=== PATIENT | female | born 1980 | race Caucasian/White ===

== ENCOUNTER 2017-03-21 13:52 | Inpatient (IN) | payer BC ==
--- NOTE | ~2017-03-21 | DS ---
Discharge Summary [address] [facility] [place]. [address] NAME: JESSICA CAMARA : 76 STATUS : DIS Brian PAT#: [id number] AGE: 36 ADM/REG DATE : 03/21/17 MR#: [id number] REPORT SERV DATE: 03/24/17 DICTATED BY: VEE FERNANDEZ DATE: 03/23/17 REPORT STATUS : Draft TRANSCRIBED BY: MODL DATE: 03/23/17 ADMISSION DATE: 03/21/2017 DISCHARGE DATE: 03/23/2017 DISCHARGE DIAGNOSES: 1. Idiopathic thrombocytopenic purpura. 2. Status post liver transplant in 2006 and 2015. 3. Chronic leukocytosis. WBC count is 17.6. 4. Elevated blood pressure. LABORATORY DATA: WBC 17.6, hemoglobin 12.3, hematocrit 38.6, and platelet count 57. Sodium 135, potassium is 3.8, chloride is 102, CO2 is 26, BUN is 27, creatinine is 0.59, glucose is 106, and calcium is 9.2. COURSE IN THE HOSPITAL STAY: Please refer to history and physical dictated on 03/21/2017 for complete admission details. This patient is a 36-year-old female who presented as a direct admission from Dr. Dave Henderson's office. She does present with a history of ITP, status post liver transplant in 2006 and 2015. The patient's platelet count upon admission was less than 5. The patient was admitted for infusion of IVIG as well as plateletpheresis. 1. ITP. The patient's platelet count as noted is less than 5 upon admission. The patient was transfused 1 unit of plateletpheresis as well as IVIG x3 days along with Decadron pulse dosing. The patient has tolerated it well. Upon discharge, the patient's platelet count is 57. She will follow up with Dr. Dave Henderson on 03/24/2017. 2. Status post liver transplant in 2006 and 2015. The patient is followed by [facility]. The patient does state that she has followup scheduled already. 3. Chronic leukocytosis. The patient does present with a history of elevated white count. Upon discharge, WBC count is 17.6. This is monitored again by [facility] as well as Dr. Dave Henderson. 4. Elevated blood pressure. The patient presented with elevated blood pressure. During her hospital stay, she did receive hydralazine p.r.n. as needed for elevated blood pressure. Upon discharge, at this time, the patient's blood pressure is 102/64. During her hospital stay, her blood pressure did rise to 175/110. Again, the patient was given hydralazine as needed. A prescription for clonidine has been provided for the patient. She does state that she has had history of elevated blood pressure. At one time, was on Norvasc, but has discontinued that. The patient again will monitor blood pressure and keep a log to review with [facility]. A prescription for clonidine 0.1 mg was provided, directions also reviewed with the patient. Questions were answered. DISCHARGE MEDICATIONS: 1. Dapsone 100 mg one p.o. daily. 2. Decadron 20 mg p.o. every 12 hours. 3. Prograf 1 mg, 4 mg p.o. daily. 4. Myfortic 180 mg p.o. twice daily. 5. Tylenol 325 mg, 650 mg p.o. every six hours p.r.n. Discharge Summary [address] [address] NAME: JESSICA CAMARA : 76 STATUS : DIS Brian PAT#: [id number] AGE: 36 ADM/REG DATE : 03/21/17 MR#: [id number] REPORT SERV DATE: 03/24/17 DICTATED BY: VEE FERNANDEZ DATE: 03/23/17 REPORT STATUS : Draft TRANSCRIBED BY: MEHREEN DATE: 03/23/17 6. Claritin-D one tab every 12 hours p.r.n. 7. Omeprazole 40 mg one p.o. every day x10 days. 8. Clonidine 0.1 mg one p.o. b.i.d. x3 days, then p.o. every day. The patient to monitor blood pressure. This patient is being discharged home in hemodynamically stable condition. She will follow up with Dr. Dave Henderson's office on 03/24/2017. Discharge questions were answered. This discharge took greater than 30 minutes. DICTATED BY: KHURRAM De León/MEHREEN Vee Fernandez NP / [id number] CC: Jocelin Moran MD
--- NOTE | ~2017-03-21 | HP ---
History And Physical [address] [place]. [address] NAME: JESSICA CAMARA : 76 STATUS : ADM Brian PAT#: [id number] AGE: 36 ADM/REG DATE : 03/21/17 MR#: [id number] REPORT SERV DATE: 03/22/17 DICTATED BY: VEE FERNANDEZ DATE: 03/21/17 REPORT STATUS : Draft TRANSCRIBED BY: MODL DATE: 03/21/17 DATE OF ADMISSION: 03/21/2017 REASON FOR ADMISSION: Infusion of IVIG. HISTORY OF PRESENT ILLNESS: This patient is a 36-year-old female, who presented as a direct admission from Dr. Dave Henderson's office. She does present with a history of ITP. She was seen in Dr. Henderson's office today with a platelet count of less than 5. The patient does present with a history of liver transplant at [facility] in 2006 and 2015. The patient states that she was diagnosed with ITP in 1982. She does state that she has petechiae on her lower extremities. The patient denies active bleeding. The patient does deny any shortness of breath. She denies any chest pain. She denies any dizziness or headache. REVIEW OF SYSTEMS: Otherwise negative review of systems, except as listed above. PAST MEDICAL HISTORY: 1. ITP, under the care of Dr. Dave Henderson. 2. Iron-deficiency anemia. 3. Chronic leukocytosis. 4. C difficile. 5. Ulcerative colitis. 6. Umbilical cellulitis with abscess in 2010. 7. Sclerosing cholangitis. 8. [place] spotted fever. PAST SURGICAL HISTORY: 1. Liver transplant in 2006 and 2015 at [facility]. 2. Splenectomy, 1983. 3. Biliary drain. 4. Appendectomy. 5. Cholecystectomy. 6. Right ovarian surgery. SOCIAL HISTORY: The patient is . She is a [id number] mom. One child. Denies smoking. Denies alcohol. Denies illicit drug use. HOME MEDICATIONS: 1. Tylenol 325 mg, 650 mg p.o. every 6 hours p.r.n. 2. Dapsone 100 mg one p.o. daily. 3. Claritin-D one tablet p.o. every 12 hours p.r.n. 4. Myfortic 180 mg tablet p.o. twice daily. 5. Prednisone 20 mg one p.o. daily. 6. Prograf 1 mg capsule, mg p.o. twice daily. PHYSICAL EXAMINATION: History And Physical [address] [place]. [address] NAME: JESSICA CAMARA : 76 STATUS : ADM Brian PAT#: [id number] AGE: 36 ADM/REG DATE : 03/21/17 MR#: [id number] REPORT SERV DATE: 03/22/17 DICTATED BY: VEE FERNANDEZ DATE: 03/21/17 REPORT STATUS : Draft TRANSCRIBED BY: MEHREEN DATE: 03/21/17 VITAL SIGNS: O2 saturations 98% on room air, temperature is 98.5, pulse is 102, respirations 18, blood pressure is 152/90. GENERAL: This patient is in no acute distress. HEENT: Head is normocephalic, atraumatic. Pupils are equal, round, and reactive. Mucous membranes are moist and pink. Sclerae are nonicteric. NECK: No JVD. No lymphadenopathy. LUNGS: Clear bilateral. No wheezes, rales, or rhonchi. HEART: The patient is tachycardic. No murmurs, rubs, or gallops. ABDOMEN: Soft, nontender to touch. EXTREMITIES: No cyanosis. No clubbing. No edema. Petechiae noted in bilateral lower extremities. NEUROLOGICAL: The patient is alert and oriented x3. LABORATORY DATA: WBC 17.9, hemoglobin 13.0, hematocrit 40.5, platelet count less than 5. PLAN OF CARE: 1. ITP. The patient does have history of ITP, will be followed by Dr. Dave Henderson during her stay. Platelet count this time is less than 5. The patient will receive IVIG x3 days. Daily CBC. 2. Status post liver transplant in 2006 and 2015. We will continue the patient's home medications. 3. Chronic leukocytosis. WBC count noted is 17.9. We will continue to monitor. 4. The patient is a full code. The patient will be followed by Dr. Riggins and Dr. Dave Henderson during her hospital stay. [facility]/MEHREEN Vee Fernandez NP / [id number] CC: Jocelin Moran MD
[~2017-03-21 13:52] MED LIST: ACET500CAP PO; ACT300 PO; ALINIA500 PO; CELLCEPT PO; CELLCEPT2 PO; CELLCEPT5 PO; CLARITD PO; ESTRATESHS PO; ESTRATEST PO; FLAG500TAB PO; IMU PO; LEVAQUIN5T PO; LEVAQUIN750 MG PO; MAGNESIUM POWDER PO; NEXIUM40 PO; NORCO1 TA1 PO; P10 PO; P20 PO; P5 PO; PREDNISONE PO; PRILO PO; PROBIOTIC PO; PROGRAF1 PO; PROGRAF5 PO; [UNRECOGNIZED DRUG - OTHER]; [UNRECOGNIZED DRUG - OTHER] PO; [UNRECOGNIZED DRUG - OTHER] PO
[2017-03-21] MEDS ORDERED: P20 PO (14:31)
[2017-03-21] MEDS ORDERED: MYFORTIC180 MG PO (14:31)
[2017-03-21] MEDS ORDERED: DAPSONE 100 MG100 MG PO (14:31)
[2017-03-21] MEDS ORDERED: T PO (14:32)
[2017-03-21] MEDS ORDERED: CLARITD PO (14:33)
[2017-03-22 05:03] LABS: BASOPHILS 0.8 %; BASOPHILS ABSOLUTE 0.08 10/3/uL (0.0-0.16); EOSINOPHILS 7.8 %; EOSINOPHILS ABSOLUTE 0.81 10/3/uL (0.0-0.53); HEMOGLOBIN 10.7 g/dL (12.0-16.0); IMMATURE GRANULOCYTES 0.4 %; IMMATURE GRANULOCYTES ABSOLUTE 0.04 10/3/uL (0.0-0.11); LYMPHOCYTES 29.6 %; LYMPHOCYTES ABSOLUTE 3.08 10/3/uL (0.67-4.30); MANUAL DIFF NO %; MEAN CORPUS HGB CONC 32.4 g/dL (32.0-36.0); MEAN CORPUSCULAR HEMOGLOB 26.9 pg (26.0-34.0); MEAN CORPUSCULAR VOLUME 82.9 fL (80-100); MONOCYTES 10.8 %; MONOCYTES ABSOLUTE 1.12 10/3/uL (0.21-1.20); NEUTROPHILS 50.6 %; NEUTROPHILS ABSOLUTE 5.26 10/3/uL (2.02-8.40); PLATELET COUNT 4 10/3/uL (150-400); RBC DISTRIBUTION WIDTH 17.6 % (12.0-16.0); RED CELL COUNT 3.98 10/6/uL (4.0-5.6); WHITE BLOOD CELLS 10.4 10/3/uL (4.5-10.5)
[2017-03-22 05:20] LABS: ANISOCYTOSIS 1+ (5-10/OIF) (0-5/OIF); BAND NEUTROPHILS 3 %; EOSINOPHILS 9 %; EOSINOPHILS ABSOLUTE (CALC) 0.94 10/3/uL (0.0-0.53); HOWELL JOLLY BODIES 1+ (1-2/OIF); LYMPHOCYTES 29 %; LYMPHOCYTES ABSOLUTE (CALC) 3.02 10/3/uL (0.67-4.30); MONOCYTES 3 %; MONOCYTES ABSOLUTE (CALC) 0.31 10/3/uL (0.21-1.20); NEUTROPHILS ABSOLUTE (CALC) 6.14 10/3/uL (2.02-8.40); SEGMENTED NEUTROPHIL (0) 56 %; TOTAL NUCLEATED CELLS 100
[2017-03-23 07:51] LABS: BASOPHILS 0.1 %; BASOPHILS ABSOLUTE 0.01 10/3/uL (0.0-0.16); EOSINOPHILS 0 %; HEMATOCRIT 38.6 % (36.0-48.0); HEMOGLOBIN 12.3 g/dL (12.0-16.0); IMMATURE GRANULOCYTES 0.5 %; IMMATURE GRANULOCYTES ABSOLUTE 0.08 10/3/uL (0.0-0.11); LYMPHOCYTES 12.1 %; LYMPHOCYTES ABSOLUTE 2.13 10/3/uL (0.67-4.30); MANUAL DIFF NO %; MEAN CORPUS HGB CONC 31.9 g/dL (32.0-36.0); MEAN CORPUSCULAR HEMOGLOB 26.3 pg (26.0-34.0); MEAN CORPUSCULAR VOLUME 82.5 fL (80-100); MONOCYTES 7.6 %; MONOCYTES ABSOLUTE 1.34 10/3/uL (0.21-1.20); NEUTROPHILS 79.7 %; NEUTROPHILS ABSOLUTE 14.04 10/3/uL (2.02-8.40); PLATELET COUNT 57 10/3/uL (150-400); RBC DISTRIBUTION WIDTH 17.3 % (12.0-16.0); RED CELL COUNT 4.68 10/6/uL (4.0-5.6); WHITE BLOOD CELLS 17.6 10/3/uL (4.5-10.5)
[2017-03-23 07:58] LABS: BUN (BLOOD UREA NITROGEN) 27 MG/DL (6-23); CALCIUM, SERUM 9.2 MG/DL (8.5-10.4); CHLORIDE, SERUM 102 MMOL/L (96-112); CO2 (CARBON DIOXIDE) 26 MMOL/L (24-34); CREATININE 0.59 MG/DL (0.55-1.02); GFR AFRICAN AMERICAN 135 ML/MIN (>=60); GFR NON AFRICAN AMERICAN 116 ML/MIN (>=60); GLUCOSE, SERUM 106 MG/DL (60-99); POTASSIUM, SERUM 3.8 MMOL/L (3.5-5.3); SODIUM, SERUM 135 MMOL/L (135-148)
[2017-03-23 08:19] LABS: ANISOCYTOSIS 1+ (5-10/OIF) (0-5/OIF); HYPOCHROMIA 1+ (3-10/OIF) (0-2/OIF); PLATELET ESTIMATE DEC (ADEQUATE)
[2017-03-23 08:20] LABS: TARGET CELLS OCC (1-2/OIF) (0-1/OIF)
[2017-03-23] MEDS ORDERED: PRILOSEC40 MG PO (10:59)
[2017-03-23] MEDS ORDERED: DEX4 PO (11:00)
[2017-03-23] MEDS ORDERED: CAT1 PO (11:00)
== END 2017-03-23 11:50 | disposition home or self-care (01) | DRG 813 ==
LOC: 4EA 13:52
PROVIDERS: Internal Medicine Hematology & Oncology
PROC: 6A550Z2 Pheresis of Platelets, Single (ICD-10-PCS; principal; 2017-03-21)
PROC: 30233S1 Transfusion of Nonautologous Globulin into Peripheral Vein, Percutaneous Approach (ICD-10-PCS; principal; 2017-03-21)
DX: D69.3 Immune thrombocytopenic purpura (principal); Z94.4 Liver transplant status; I10 Essential (primary) hypertension; D50.9 Iron deficiency anemia, unspecified; Z90.81 Acquired absence of spleen; Z79.899 Other long term (current) drug therapy; Z79.52 Long term (current) use of systemic steroids; D72.828 Other elevated white blood cell count; G43.909 Migraine, unspecified, not intractable, without status migrainosus; Z88.5 Allergy status to narcotic agent; Z88.2 Allergy status to sulfonamides; Z88.8 Allergy status to other drugs, medicaments and biological substances; Z91.041 Radiographic dye allergy status
CPT/HCPCS: 36415; 36430; 80048; 85025; 86850; 86900; 86901; 96374; 96375; 96376; A9270-GY; G0378; J0360; J1200; J1568; J2405; J2550; J7507; P9035

== ENCOUNTER 2017-04-05 12:13 | Inpatient (IN) | payer BC ==
--- NOTE | ~2017-04-05 | HP ---
History And Physical [address] [place]. [address] NAME: JESSICA CAMARA : 76 STATUS : ADM IN [facility]#: [id number] AGE: 37 ADM/REG DATE : 04/05/17 MR#: [id number] REPORT SERV DATE: 04/05/17 DICTATED BY: VEE FERNANDEZ DATE: 04/05/17 REPORT STATUS : Draft TRANSCRIBED BY: MODL DATE: 04/05/17 DATE OF ADMISSION: 04/05/2017 REASON FOR ADMISSION: Infusion of IVIG. HISTORY OF PRESENT ILLNESS: This patient is a 37-year-old female, who presents as a direct admission from Dr. Dave Henderson's office. She does present with a history of ITP. The patient reports the platelet count this afternoon is 9. The patient does report that she has a history of a liver transplant in 2006 and 2015 from [facility]. The patient states that she was diagnosed with ITP in 1982. The patient reports having petechiae on her lower extremities. Does state that she has noted blood with stool. Denies blood in urine. Denies nosebleeds. Denies headache or change in vision. Denies chest pain. Denies shortness of breath. REVIEW OF SYSTEMS: Otherwise negative review of systems except what is listed above. PAST MEDICAL HISTORY: 1. ITP, diagnosed in 1982 under the care of Dr. Dave Henderson. 2. Iron-deficiency anemia. 3. Chronic leukocytosis. 4. C. difficile. 5. Ulcerative colitis. 6. Umbilical cellulitis with abscess in 2010. 7. Sclerosing cholangitis. 8. [place] spotted fever. PAST SURGICAL HISTORY: 1. Liver transplant in 2006 and 2015 at [facility]. 2. Splenectomy, 1983. 3. Biliary drain. 4. Appendectomy. 5. Cholecystectomy. 6. Right ovarian surgery. SOCIAL HISTORY: The patient is , [id number] mom, one son. Denies alcohol, smoking, and illicit drug use. HOME MEDICATIONS: 1. Dapsone 100 mg one p.o. daily. 2. Myfortic 360 mg p.o. twice daily. 3. Prednisone 20 mg one p.o. daily. 4. Prograf 1 mg capsule 4 mg p.o. twice daily. PHYSICAL EXAMINATION: VITAL SIGNS: O2 saturations 96% on room air, temperature is 98.3, pulse is 106, respirations History And Physical [address] [address] NAME: JESSICA CAMARA : 76 STATUS : ADM IN PAT#: [id number] AGE: 37 ADM/REG DATE : 04/05/17 MR#: [id number] REPORT SERV DATE: 04/05/17 DICTATED BY: VEE FERNANDEZ DATE: 04/05/17 REPORT STATUS : Draft TRANSCRIBED BY: MODL DATE: 04/05/17 18, and blood pressure is 111/76. GENERAL: This patient is in no acute distress. HEENT: Normocephalic, atraumatic. Pupils are equal, round, and reactive. Mucous membranes are moist and pink. Sclerae are nonicteric. NECK: No JVD. No lymphadenopathy. LUNGS: Clear bilateral. No wheezes, rales, or rhonchi. HEART: Tachycardic. No murmurs, rubs, or gallops. ABDOMEN: Soft, nontender to touch. Bowel sounds are active. EXTREMITIES: No cyanosis. No clubbing. No edema. Petechia noted on bilateral lower extremities. NEUROLOGICAL: The patient is alert and oriented x3. LABORATORY DATA: To be obtained. PLAN OF CARE: 1. ITP. The patient does present with a history of ITP, followed by Dr. Dave Henderson. We will check the patient's platelet count if needed. The patient will receive platelet pheresis. The patient will also receive IVIG x3 days along with a daily CBC. 2. Chronic leukocytosis. The patient has been noted with chronic leukocytosis. We will continue to monitor the patient. 3. Status post liver transplant in 2006 and 2015 at [facility]. The patient will follow up with physician at [facility] upon discharge. 4. Code: The patient is a full code. The patient will be followed by Dr. Riggins and Dr. Dave Henderson during her hospital stay. /MEHREEN Vee Fernandez NP / [id number] CC: Jocelin Roland MD
--- NOTE | ~2017-04-05 | DS ---
Discharge Summary [address] [place]. [address] NAME: JESSICA CAMARA : 76 STATUS : DIS IN PAT#: [id number] AGE: 37 ADM/REG DATE : 04/05/17 MR#: [id number] REPORT SERV DATE: 04/08/17 DICTATED BY: VEE FERNANDEZ DATE: 04/07/17 REPORT STATUS : Draft TRANSCRIBED BY: MEHREEN DATE: 04/07/17 ADMISSION DATE: 04/05/2017 DISCHARGE DATE: 04/07/2017 DISCHARGE DIAGNOSES: 1. Chronic idiopathic thrombocytopenic purpura, status post splenectomy in 1983. 2. Chronic leukocytosis. 3. Status post liver transplant in 2006 and 2015 at [facility]. LABORATORY DATA: WBC is 15.3, hemoglobin 11.6, hematocrit 36.4, and platelet count is 55. COURSE IN THE HOSPITAL STAY: Please refer to history and physical dictated on 04/05/2017 for complete admission details. This patient is a 37-year-old female who presents as a direct admission from Dr. Dave Henderson's office. The patient does present with a history of chronic ITP. The patient is status post liver transplant in 2006 and 2015 at [facility]. The patient was admitted for infusion of IVIG x3 doses. The patient's platelet count upon admission was 17, upon discharge, platelet count was 55 after receiving three doses of IVIG. The patient did not require platelet infusion during the stay. She is being discharged home in hemodynamically stable condition. We will follow up with Dr. Henderson on 04/11/2017 and MELISSA on 04/12/2017. DISCHARGE MEDICATIONS: 1. Dapsone 100 mg one p.o. daily. 2. Prograf 1 mg, 4 mg p.o. daily. 3. Prednisone 20 mg one p.o. daily. 4. Myfortic 180 mg, 360 mg p.o. twice daily. This discharge took less than 30 minutes. DICTATED BY: KHURRAM De León/MEHREEN Vee Fernandez NP / [id number] CC: Jocelin Roland MD
[~2017-04-05 12:13] MED LIST changes: +CAT1 PO; +DAPSONE 100 MG100 MG PO; +DEX4 PO; +MYFORTIC180 MG PO; +PRILOSEC40 MG PO; +T PO
[2017-04-05 16:54] LABS: ALBUMIN 3.6 G/DL (3.5-5.0); BUN (BLOOD UREA NITROGEN) 29 MG/DL (6-23); CALCIUM, SERUM 8.8 MG/DL (8.5-10.4); CHLORIDE, SERUM 102 MMOL/L (96-112); CO2 (CARBON DIOXIDE) 28 MMOL/L (24-34); CREATININE 0.96 MG/DL (0.55-1.02); GFR AFRICAN AMERICAN 86 ML/MIN (>=60); GFR NON AFRICAN AMERICAN 74 ML/MIN (>=60); POTASSIUM, SERUM 3.4 MMOL/L (3.5-5.3); SGOT(AST) 32 U/L (5-40); SGPT(ALT) 77 U/L (5-65); SODIUM, SERUM 133 MMOL/L (135-148); TOTAL BILIRUBIN 0.4 MG/DL (0-1.2)
[2017-04-05 16:57] LABS: A/G RATIO 0.8 (0.7-1.9); ALKALINE PHOSPHATASE 250 U/L (45-117); GLOBULIN 4.7 G/DL (2.5-4.1); GLUCOSE, SERUM 213 MG/DL (60-99); TOTAL PROTEIN 8.3 G/DL (6.0-8.5)
[2017-04-05 22:01] LABS: BASOPHILS 0.3 %; BASOPHILS ABSOLUTE 0.03 10/3/uL (0.0-0.16); EOSINOPHILS 0 %; HEMOGLOBIN 14.3 g/dL (12.0-16.0); IMMATURE GRANULOCYTES 0.4 %; IMMATURE GRANULOCYTES ABSOLUTE 0.04 10/3/uL (0.0-0.11); LYMPHOCYTES 13.9 %; LYMPHOCYTES ABSOLUTE 1.56 10/3/uL (0.67-4.30); MEAN CORPUS HGB CONC 32.3 g/dL (32.0-36.0); MEAN CORPUSCULAR HEMOGLOB 26.8 pg (26.0-34.0); MONOCYTES ABSOLUTE 0.45 10/3/uL (0.21-1.20); NEUTROPHILS 81.4 %; NEUTROPHILS ABSOLUTE 9.17 10/3/uL (2.02-8.40); RBC DISTRIBUTION WIDTH 17.5 % (12.0-16.0); RED CELL COUNT 5.34 10/6/uL (4.0-5.6); WHITE BLOOD CELLS 11.3 10/3/uL (4.5-10.5)
[2017-04-05 22:22] LABS: ANISOCYTOSIS 1+ (5-10/OIF) (0-5/OIF)
[2017-04-05 22:24] LABS: HEMATOCRIT 44.3 % (36.0-48.0); PLATELET COUNT 17 10/3/uL (150-400)
[2017-04-05 22:27] LABS: MANUAL DIFF NO %
[2017-04-06 06:21] LABS: BASOPHILS 0.2 %; BASOPHILS ABSOLUTE 0.04 10/3/uL (0.0-0.16); EOSINOPHILS 1.7 %; EOSINOPHILS ABSOLUTE 0.37 10/3/uL (0.0-0.53); HEMATOCRIT 40.2 % (36.0-48.0); HEMOGLOBIN 12.9 g/dL (12.0-16.0); IMMATURE GRANULOCYTES 0.4 %; IMMATURE GRANULOCYTES ABSOLUTE 0.08 10/3/uL (0.0-0.11); LYMPHOCYTES 13.1 %; MEAN CORPUS HGB CONC 32.1 g/dL (32.0-36.0); MEAN CORPUSCULAR HEMOGLOB 26.7 pg (26.0-34.0); MEAN CORPUSCULAR VOLUME 83.1 fL (80-100); MONOCYTES 12.9 %; MONOCYTES ABSOLUTE 2.75 10/3/uL (0.21-1.20); NEUTROPHILS 71.7 %; RBC DISTRIBUTION WIDTH 17.3 % (12.0-16.0); RED CELL COUNT 4.84 10/6/uL (4.0-5.6)
[2017-04-06 06:22] LABS: MANUAL DIFF NO %; PLATELET COUNT 12 10/3/uL (150-400); WHITE BLOOD CELLS 21.3 10/3/uL (4.5-10.5)
[2017-04-06 06:52] LABS: RBC MORPHOLOGY NORM (NORMAL)
[2017-04-07 05:08] LABS: BASOPHILS 0.3 %; BASOPHILS ABSOLUTE 0.05 10/3/uL (0.0-0.16); EOSINOPHILS 0.9 %; EOSINOPHILS ABSOLUTE 0.13 10/3/uL (0.0-0.53); HEMATOCRIT 36.4 % (36.0-48.0); HEMOGLOBIN 11.6 g/dL (12.0-16.0); IMMATURE GRANULOCYTES 0.4 %; IMMATURE GRANULOCYTES ABSOLUTE 0.06 10/3/uL (0.0-0.11); MEAN CORPUS HGB CONC 31.9 g/dL (32.0-36.0); MEAN CORPUSCULAR HEMOGLOB 26.5 pg (26.0-34.0); MEAN CORPUSCULAR VOLUME 83.1 fL (80-100); MONOCYTES 13.6 %; MONOCYTES ABSOLUTE 2.07 10/3/uL (0.21-1.20); NEUTROPHILS 63.8 %; NEUTROPHILS ABSOLUTE 9.74 10/3/uL (2.02-8.40); RBC DISTRIBUTION WIDTH 17.2 % (12.0-16.0); RED CELL COUNT 4.38 10/6/uL (4.0-5.6); WHITE BLOOD CELLS 15.3 10/3/uL (4.5-10.5)
[2017-04-07 05:10] LABS: MANUAL DIFF NO %; PLATELET COUNT 55 10/3/uL (150-400)
[2017-04-07 06:11] LABS: ANISOCYTOSIS 1+ (5-10/OIF) (0-5/OIF); HYPOCHROMIA 1+ (3-10/OIF) (0-2/OIF); MICROCYTES 1+ (5-10/OIF) (0-5/OIF); PLATELET ESTIMATE DEC (ADEQUATE)
== END 2017-04-07 15:32 | disposition home or self-care (01) | DRG 813 ==
LOC: 4EA 12:13
PROVIDERS: Internal Medicine
DX: D69.3 Immune thrombocytopenic purpura (principal); Z94.4 Liver transplant status; Z90.81 Acquired absence of spleen
CPT/HCPCS: 80053; 85025; A9270-GY; J1568; J7507